=== PATIENT | male | born 1965 | race Caucasian/White ===

== ENCOUNTER → 2019-05-04 | Outpatient (CLI) | payer SELFPAY ==
--- NOTE | 2019-05-04 10:07 | Diagnostic Imaging Report ---
INDICATION: Chronic right knee pain. Time of exam: 9:38 AM 3 views of the right knee were obtained. Alignment is normal. Joint spaces are well maintained. Articular surfaces are smooth. No fracture, dislocation or effusion is seen. IMPRESSION: No acute bony abnormality is detected. Dictated by: Dictated on workstation # [id number]
--- NOTE | 2019-05-04 10:08 | Diagnostic Imaging Report ---
INDICATION: Chronic right foot pain. TIME OF EXAM: 9:43 AM 2 views of the right foot were obtained. FINDINGS: There are some degenerative changes at the first MTP joint. Metatarsals appear intact. Phalanges are intact. Midfoot and hindfoot are unremarkable. No fractures are seen. IMPRESSION: No acute bony abnormality is detected. Dictated by: Dictated on workstation # [id number]
== END ==
LOC: RAD FS 09:22
PROVIDERS: ATTEND Family Medicine
DX: G89.29 Other chronic pain (principal); M79.671 Pain in right foot; M25.561 Pain in right knee
CPT/HCPCS: 73562; 73620

== ENCOUNTER → 2020-07-30 | Outpatient (CLI) | payer SELFPAY ==
[~2020-07-30] VITALS: Ht 193 cm; Wt 129.0 kg
[~2020-07-30] MED LIST: REGADENOSON 0.4 MG/5 ML SYR (LEXISCAN) IV ONE; meTOprolol 5 MG/5 ML (LOPRESSOR) VIAL ONE
[2020-07-30] MEDS: CATHETER FLUSH 10 ML SYR IV PRN ×2 (08:43→09:47)
[2020-07-30 09:44] VITALS: BP 118/98
--- NOTE | 2020-07-30 11:25 | Cardiology Stress Test Report ---
Stress Test Report Date of Procedure/Referring: Date of Procedure: Jul 30, 2020 PCP Quan Jackson MD Admitting Physician Luis Miguel German MD Indications: cp Baseline Heart Rate: 136 Baseline Blood Pressure: Blood Pressure Systolic: 118 Blood Pressure Diastolic: 98 Baseline Vitals Vital Signs Date Time Temp Pulse Resp B/P (MAP) Pulse Ox O2 Delivery O2 Flow Rate FiO2 07/30/20 09:44 136 14 118/98 (105) 97 Room Air Baseline EKG: Baseline EKG: Atrial fibrillation, RVR Summary After explaining the procedure to the patient, he signed a consent and then brought to the stress nuclear laboratory. Patient received 0.4 mg Lexiscan for stress test, ECG, heart rate and blood pressure were monitored continuously. Resting and stress dose of radio tracer were injected, imaging was acquired and reviewed in short axis, horizontal long axis and vertical long axis views. TID: 1.07 SSS: 3 SDS: 3 EF: 56 1. Patient tolerated Lexiscan well 2. Baseline atrial fibrillation with rapid ventricular response persisted during test required IV Lopressor at the end of the test 3. Diaphragmatic attenuation with decreased uptake involving the mid to apical inferior wall with mild reversibility 4. Normal left ventricular size, ejection fraction 56 percent, underlying atrial fibrillation affect her produce ability of the gated images QUAN JACKSON MD Jul 30, 2020 11:25
== END ==
LOC: CARD 08:16
PROVIDERS: ATTEND Internal Medicine Cardiovascular Disease
DX: I50.22 Chronic systolic (congestive) heart failure (principal); I48.91 Unspecified atrial fibrillation; R06.00 Dyspnea, unspecified; R07.89 Other chest pain
CPT/HCPCS: 78452; 93017; 93306; A9502

== ENCOUNTER → 2020-08-03 | Outpatient (CLI) | payer SELFPAY ==
[~2020-08-03] MED LIST changes: +CATHETER FLUSH 10 ML SYR IV PRN; -REGADENOSON 0.4 MG/5 ML SYR (LEXISCAN) IV ONE; -meTOprolol 5 MG/5 ML (LOPRESSOR) VIAL ONE
--- NOTE | 2020-08-03 13:02 | Diagnostic Imaging Report ---
Exam: Nuclear medicine HIDA scan. Date: August 03, 2020. Indication: 55-year-old male, right upper quadrant abdominal pain. Comparison: None. Findings: 5.48 mCi of technetium labeled Choletec was administered. Ensure was administered for calculation of gallbladder ejection fraction. There is clearance of background activity by the liver indicating hepatocyte function. There is radiotracer excretion into the bile ducts and prompt filling of the gallbladder. There is extension of radiotracer into the small bowel. There is no identified enterogastric reflux. The gallbladder ejection fraction is calculated at 16%. Impression: 1. No evidence of acute cholecystitis or complete common bile duct obstruction. 2. The gallbladder ejection fraction is measured below lower limits of normal at 16%. This can be seen in the setting of biliary dyskinesia and/or chronic cholecystitis. Dictated by: Dictated on workstation # [id number]
== END ==
LOC: CARD 10:00
PROVIDERS: ATTEND Family Medicine
DX: R10.11 Right upper quadrant pain (principal)
CPT/HCPCS: 78227; A9537

== ENCOUNTER 2022-06-05 16:26 | Emergency (ER) | payer SELFPAY ==
[~2022-06-05] VITALS: Ht 193.4 cm; Wt 133.6 kg
[2022-06-05] MEDS ORDERED: meTOprolol 5 MG/5 ML (LOPRESSOR) VIAL IV STA (16:53)
[2022-06-05 16:58] LABS: BASOPHILS % (AUTO) 0 % (0-10); EOSINOPHILS # (AUTO) 0.2 10^3/uL (0.0-0.3); EOSINOPHILS % (AUTO) 2 % (0-10); HEMATOCRIT 47 % (40-54); HEMOGLOBIN 16.3 g/dL (13.3-17.7); LYMPHOCYTES # (AUTO) 2.2 10^3/uL (1.0-4.0); LYMPHOCYTES % (AUTO) 24 % (12-44); MEAN CORPUSCULAR HEMOGLOBIN 30 pg (25-34); MEAN CORPUSCULAR HGB CONC 35 g/dL (32-36); MEAN CORPUSCULAR VOLUME 87 fL (80-99); MEAN PLATELET VOLUME 10.1 fL (9.0-12.2); MONOCYTES # (AUTO) 0.9 10^3/uL (0.0-1.0); MONOCYTES % (AUTO) 10 % (0-12); NEUTROPHILS # (AUTO) 5.6 10^3/uL (1.8-7.8); NEUTROPHILS % (AUTO) 63 % (42-75); PLATELET COUNT 212 10^3/uL (130-400)
--- NOTE | 2022-06-05 17:03 | ED General ---
General Chief Complaint: Dizziness/Syncope Stated Complaint: LIGHTHEADED Nursing Triage Note: dizzy and light headed started around 1500 today and has not resolved. states has had before but today would not go away. denies fever, positive for small occasional non productive cough. denies recent illness. Source of Information: Patient History of Present Illness Date Seen by Provider: Jun 05, 2022 Time Seen by Provider: 16:31 Initial Comments 57-year-old male presenting with complaints of feeling dizzy and lightheaded. He states this started around 3 PM today while he was at court and was getting frustrated and agitated. He denied any chest pain with this. He has not had any fever or chills. He has had small occasional nonproductive cough. He was feeling better by the time he arrived here in the emergency department. He was unsure if he was having anxiety or panic attack or if this was related to the stress of being frustrated while he was at court. He denied having a headache or any blurred vision. He had some mild nausea but no vomiting. Timing/Duration: 1-3 Hours Severity: Moderate Modifying Factors: worse with Movement (Been up walking as well as stress had triggered his symptoms) Associated Systoms: No Chest Pain, No Diaphoresis, No Fever/Chills, No Headaches, No Loss of Appetite, No Malaise, No Rash, No Seizure, No Shortness of Air, No Syncope, No Weakness Allergies and Home Medications Allergies Coded Allergies: No Allergy Information Available (Unverified , 07/30/20) Patient Home Medication List Home Medication List Reviewed: Yes Review of Systems Review of Systems Constitutional: No chills; dizziness; No fever EENTM: No ear discharge, No ear pain, No blurred vision, No nose congestion, No throat pain Respiratory: cough (Occasional intermittent nonproductive cough); No short of breath Cardiovascular: No chest pain Gastrointestinal: nausea; No vomiting Genitourinary: no symptoms reported Musculoskeletal: no symptoms reported Skin: No rash Psychiatric/Neurological: Emotional Problems (Stressed and anxious while he was at court today when his symptoms started); Denies Headache, Denies Numbness, Denies Paresthesia Past [id number] Hx Patient Social History Tobacco Use?: No Use of E-Cig and/or Vaping dev: Yes E-Cig or Vaping type used: Nicotine Substance type: Marijuana Substance frequency: Daily Alcohol Use?: Yes Alcohol Frequency: Once in a while Immunizations Up To Date First/Initial COVID19 Vaccinat: declined Past Medical History Surgery/Hospitalization HX: DIABETES, HEART DISEASE Physical Exam Vital Signs Vital Signs - First Documented 06/05/22 16:35 Temp 36.3 Pulse 123 Resp 20 B/P (MAP) 138/95 (109) Pulse Ox 95 O2 Delivery Room Air Capillary Refill : Less Than 3 Seconds Height, Weight, BMI Height: '" Weight: lbs. oz. kg; 35.00 BMI Method: General Appearance: No Apparent Distress, WD/WN, Obese HEENT: PERRL/EOMI, Pharynx Normal Neck: Full Range of Motion, Normal Inspection, Non Tender, Supple Respiratory: Chest Non Tender, Lungs Clear, Normal Breath Sounds, No Accessory Muscle Use, No Respiratory Distress Cardiovascular: Normal Peripheral Pulses, Tachycardia Gastrointestinal: Normal Bowel Sounds, No Pulsatile Mass, Non Tender, Soft Rectal: Deferred Extremity: Normal Capillary Refill, Normal Inspection, Pedal Edema (Trace to 1+ pitting pedal edema bilaterally) Neurologic/Psychiatric: Alert, Oriented x3, hand coke drawer II-XII Norm as Tested Skin: Normal Color, Warm/Dry Progress/Results/Core Measures Suspected Sepsis SIRS Temperature: Pulse: 123 Respiratory Rate: 20 Laboratory Tests 06/05/22 16:40: White Blood Count 9.0 Blood Pressure 138 /95 Mean: 109 Laboratory Tests 06/05/22 16:40: Creatinine 1.07, INR Comment 1.1, Platelet Count 212, Total Bilirubin 0.6 Results/Orders Lab Results Laboratory Tests Test 06/05/22 16:40 Range/Units White Blood Count 9.0 4.3-11.0 10^3/uL Red Blood Count 5.39 4.30-5.52 10^6/uL Hemoglobin 16.3 13.3-17.7 g/dL Hematocrit 47 40-54 % Mean Corpuscular Volume 87 80-99 fL Mean Corpuscular Hemoglobin 30 25-34 pg Mean Corpuscular Hemoglobin Concent 35 32-36 g/dL Red Cell Distribution Width 12.7 10.0-14.5 % Platelet Count 212 130-400 10^3/uL Mean Platelet Volume 10.1 9.0-12.2 fL Immature Granulocyte % (Auto) 1 % Neutrophils (%) (Auto) 63 42-75 % Lymphocytes (%) (Auto) 24 12-44 % Monocytes (%) (Auto) 10 0-12 % Eosinophils (%) (Auto) 2 0-10 % Basophils (%) (Auto) 0 0-10 % Neutrophils # (Auto) 5.6 1.8-7.8 10^3/uL Lymphocytes # (Auto) 2.2 1.0-4.0 10^3/uL Monocytes # (Auto) 0.9 0.0-1.0 10^3/uL Eosinophils # (Auto) 0.2 0.0-0.3 10^3/uL Basophils # (Auto) 0.0 0.0-0.1 10^3/uL Immature Granulocyte # (Auto) 0.1 0.0-0.1 10^3/uL Prothrombin Time 14.5 12.2-14.7 SEC INR Comment 1.1 0.8-1.4 Activated Partial Thromboplast Time 37 H 24-35 SEC Sodium Level 138 135-145 MMOL/L Potassium Level 4.1 3.6-5.0 MMOL/L Chloride Level 102 98-107 MMOL/L Carbon Dioxide Level 21 21-32 MMOL/L Anion Gap 15 H 5-14 MMOL/L Blood Urea Nitrogen 17 7-18 MG/DL Creatinine 1.07 0.60-1.30 MG/DL Estimat Glomerular Filtration Rate 82 BUN/Creatinine Ratio 16 Glucose Level 150 H 70-105 MG/DL Calcium Level 8.9 8.5-10.1 MG/DL Corrected Calcium 8.5-10.1 MG/DL Magnesium Level 2.0 1.6-2.4 MG/DL Total Bilirubin 0.6 0.1-1.0 MG/DL Aspartate Amino Transf (AST/SGOT) 76 H 5-34 U/L Alanine Aminotransferase (ALT/SGPT) 98 H 0-55 U/L Alkaline Phosphatase 49 40-136 U/L Troponin I < 0.30 <0.30 NG/ML Pro-B-Type Natriuretic Peptide 139.6 H <125.0 PG/ML Total Protein 7.5 6.4-8.2 GM/DL Albumin 4.6 H 3.2-4.5 GM/DL Lipase 38 8-78 U/L My Orders Orders - CAMERON BAINS MD Cbc With Automated Diff (06/05/22 16:53) Magnesium (06/05/22 16:53) Chest 1 View Ap/Pa Only (06/05/22 16:53) Ekg Tracing (06/05/22 16:53) Comprehensive Metabolic Panel (06/05/22 16:53) Protime With Inr (06/05/22 16:53) Partial Thromboplastin Time (06/05/22 16:53) O2 (06/05/22 16:53) Monitor-Rhythm Ecg Trace Only (06/05/22 16:53) Ed Iv/Invasive Line Start (06/05/22 16:53) Lipase (06/05/22 16:53) Troponin I Fs (06/05/22 16:53) Probnp Fs (06/05/22 16:53) Metoprolol Tartrate Injection (Lopressor (06/05/22 16:53) Vital Signs/I&O 06/05/22 06/05/22 16:35 18:37 Temp 36.3 36.3 Pulse 123 122 Resp 20 20 B/P (MAP) 138/95 (109) 146/103 Pulse Ox 95 95 O2 Delivery Room Air Room Air Capillary Refill : Less Than 3 Seconds Blood Pressure Mean: 109 Progress Note #1: Progress Note Obtain basic labs as well as electrocardiogram and chest x-ray. Since he is having tachycardia and has a history of atrial fibrillation we will give a single dose of metoprolol. He is inconsistent with taking his carvedilol at home. Progress Note #2: Progress Note Electrocardiogram shows atrial tachycardia but no ST elevation. There is no acute process on his chest x-ray. His heart rate stayed 120s despite metoprolol but his blood pressure did improve down into the 120s over 70s to 80s. He reports that the dizziness and lightheaded sensation had resolved so even with getting up and walking. Discussed with the patient that we could do additional medicine to help slow his heart rate more such as diltiazem in case this was him being on the cusp of going back into paroxysmal atrial fibrillation. He could also try drinking more fluids if he is a little dry. Patient walked in the emergency department and stated he was not having any further symptoms so he did not want to do any other medication here. Encouraged him to drink plenty of fluids at home and be very consistent with taking his carvedilol and blood pressure medications. Return if he is having worsening symptoms or new problems ECG Initial ECG Impression Date: Jun 05, 2022 Initial ECG Impression Time: 16:37 Initial ECG Rate: 123 Initial ECG Rhythm: S.Tach Initial ECG Comparisson: No Previous ECG Available Comment Atrial tachycardia with a heart rate of 123 bpm. Right bundle branch block. OK interval 198 ms. QT interval 300 ms with a QTc interval 373 ms. There is no prior tracing for comparison. Diagnostic Imaging Diagonstic Imaging: Xray Plain Films/CT/US/NM/MRI: chest Comments [facility], [place] NAME: [facility] REC#: [id number] PT STATUS: REG ER : 1965 PHYSICIAN: CAMERON BAINS MD ADMIT DATE: 06/05/22/ER FS Draft Date of Exam:06/05/22 CHEST 1 VIEW AP/PA ONLY INDICATION: Dizzy, tachycardia. TECHNIQUE: Single view chest 4:59 PM. CORRELATION STUDY: None FINDINGS: Heart size is borderline enlarged prevascular overall within normal limits. Tortuous course thoracic aorta. Lung jasso are hyperinflated but overall clear. IMPRESSION: 1. Negative appearing single view chest. Dictated on workstation # [id number] Dict: 06/05/22 1704 Trans: 06/05/22 1705 DO [id number] Interpreted by: RAMESH HUBBARD DO Electronically signed by: Reviewed: Reviewed by Me Departure Impression Primary Impression: Tachycardia Additional Impression: Dizziness Disposition: 01 HOME, SELF-CARE Condition: Stable Departure-Patient Inst. Decision time for Depature: 18:31 Referrals: EB RUEDA MD (PCP/Family) Primary Care Physician Patient Instructions: Dizziness, Adult ED, Tachycardia (DC) Add. Discharge Instructions: Your heart test and chest x-ray as well as blood work looked okay today. You do have a slightly fast heart rate which should respond to continued use of your regular medications such as the carvedilol. Try and stay well-hydrated and drink plenty of fluids self or electrolyte drinks. If you are slightly dry that could also contribute to the dizziness and fast heart rate. If you have worsening symptoms or new symptoms develop within return or be reevaluated. All discharge instructions reviewed with patient and/or family. Voiced understanding. CAMERON BAINS MD Jun 05, 2022 17:03
[2022-06-05 17:08] LABS: INR 1.1 (0.8-1.4); PROTHROMBIN TIME PATIENT 14.5 SEC (12.2-14.7)
[2022-06-05 17:23] LABS: ALANINE AMINOTRANSFERASE 98 U/L (0-55); ALBUMIN 4.6 GM/DL (3.2-4.5); ALKALINE PHOSPHATASE 49 U/L (40-136); BILIRUBIN,TOTAL 0.6 MG/DL (0.1-1.0); BUN/CREATININE RATIO 16; CALCIUM 8.9 MG/DL (8.5-10.1); CARBON DIOXIDE 21 MMOL/L (21-32); CHLORIDE 102 MMOL/L (98-107); CREATININE SERUM 1.07 MG/DL (0.60-1.30); GFR ESTIMATED 82; GLUCOSE 150 MG/DL (70-105); LIPASE 38 U/L (8-78); POTASSIUM 4.1 MMOL/L (3.6-5.0); SODIUM 138 MMOL/L (135-145); TOTAL PROTEIN 7.5 GM/DL (6.4-8.2)
[2022-06-05 18:37] VITALS: BP 146/103
== END 2022-06-05 18:37 | disposition home or self-care (01) ==
LOC: EDUNIT# 16:26 → ER FS 16:28
DX: R00.0 Tachycardia, unspecified (principal); R42 Dizziness and giddiness; E66.9 Obesity, unspecified; F17.290 Nicotine dependence, other tobacco product, uncomplicated; Z68.35 Body mass index [BMI] 35.0-35.9, adult; Z28.310 Unvaccinated for COVID-19
CPT/HCPCS: 36415; 71045; 80053; 83690; 83735; 83880; 84484; 85025; 85610; 85730; 93005; 93041

== ENCOUNTER 2023-07-24 10:15 | Emergency (ER) | payer SELFPAY ==
[~2023-07-24] VITALS: Ht 193 cm; Wt 131.8 kg
[2023-07-24 10:15] VITALS: BP 118/76
[2023-07-24] MEDS ORDERED: dexAMETHasone INJ 10 MG/ML 1 ML VIAL IV STA (10:24)
[2023-07-24] MEDS ORDERED: KETOROLAC INJ 30 MG/ML VIAL IVP STA (10:24)
[2023-07-24] MEDS ORDERED: NS IV 1000 ML 1,000 ML IV STA (10:24)
[2023-07-24 10:39] LABS: BASOPHILS % (AUTO) 0 % (0-10); EOSINOPHILS % (AUTO) 1 % (0-10); HEMATOCRIT 46 % (40-54); HEMOGLOBIN 15.4 g/dL (13.3-17.7); LYMPHOCYTES # (AUTO) 0.9 10^3/uL (1.0-4.0); LYMPHOCYTES % (AUTO) 11 % (12-44); MEAN CORPUSCULAR HEMOGLOBIN 30 pg (25-34); MEAN CORPUSCULAR HGB CONC 33 g/dL (32-36); MEAN CORPUSCULAR VOLUME 90 fL (80-99); MEAN PLATELET VOLUME 10.9 fL (9.0-12.2); MONOCYTES # (AUTO) 1.3 10^3/uL (0.0-1.0); MONOCYTES % (AUTO) 16 % (0-12); NEUTROPHILS # (AUTO) 5.8 10^3/uL (1.8-7.8); NEUTROPHILS % (AUTO) 71 % (42-75); PLATELET COUNT 150 10^3/uL (130-400); WHITE BLOOD COUNT 8.2 10^3/uL (4.3-11.0)
--- NOTE | 2023-07-24 10:40 | ED General ---
General Stated Complaint: POSS ALLERGIC REACTION Source of Information: Patient, EMS History of Present Illness Date Seen by Provider: Jul 24, 2023 Time Seen by Provider: 10:15 Initial Comments 58-year-old male presenting with complaints of throat swelling and facial pain and swelling. He states this has been worsening over the last 3 to 4 days. He felt like his throat was getting worse today. He was concerned that he was having an allergic reaction from using hydrocortisone cream on his scalp for eczema. He states he had but the hydrocortisone cream over a large area of his scalp because he could not see where he had eczema. He states that he has felt very fatigued and rundown over the last several days and has mainly been in bed. He felt like he was having fever and chills and was getting sweats. He is able to swallow but feels like his throat is swelling. He has not had any difficulty breathing. He became anxious and nervous that he was having bad allergic reaction and had EMS transported him here to the emergency department. On arrival to the ED he was immediately very short and demanding with the staff. He was refusing to speak and answer questions until he received some water. EMS reports that he was acting similarly with them. Severity: Severe Modifying Factors: worse with Medication (He felt like the hydrocortisone cream was causing problems for him) Associated Systoms: No Chest Pain, No Cough; Diaphoresis, Fever/Chills, Headaches, Loss of Appetite, Malaise; No Nausea/Vomiting, No Seizure, No Shortness of Air, No Syncope Allergies and Home Medications Allergies Coded Allergies: No Allergy Information Available (Unverified , 07/30/20) Patient Home Medication List Home Medication List Reviewed: Yes Amoxicillin/Potassium Clav (Amox Tr-K Clv 875-125 mg Tab) 875 Mg-125 Mg Tablet, 1 EACH PO BID Prescribed by: CAMERON BAINS on 07/24/23 1157 Hydrocodone/Acetaminophen (Hydrocodone-Acetamin 5-325 mg) 5 Mg-325 Mg Tablet, 1 TAB PO Q6H PRN for PAIN SEVERE Prescribed by: CAMERON BAINS on 07/24/23 1158 Review of Systems Review of Systems Constitutional: see HPI EENTM: throat pain, throat swelling, other (He feels like he is having swelling in pain to his face especially on the right side.) Respiratory: No cough, No short of breath, No stridor, No wheezing Cardiovascular: no symptoms reported Gastrointestinal: loss of appetite; No nausea, No vomiting Genitourinary: No dysuria Musculoskeletal: other (Generalized body aches) Skin: see HPI Psychiatric/Neurological: Headache Past [id number] Hx Immunizations Up To Date First/Initial COVID19 Vaccinat: declined Past Medical History Surgery/Hospitalization HX: DIABETES, HEART DISEASE, eczema Physical Exam Vital Signs Vital Signs - First Documented 07/24/23 10:15 Temp 37.0 Pulse 107 Resp 18 B/P (MAP) 118/76 (90) Pulse Ox 98 O2 Delivery Room Air Capillary Refill : Height, Weight, BMI Height: '" Weight: lbs. oz. kg; 35.00 BMI Method: General Appearance: Obese, Other (disheveled appearance) HEENT: PERRL/EOMI, Moist Mucous Membranes; No Photophobia; Tonsillar Exudate, Tonsillar Enlargement, Other (no stridor, erythema to right side of face and ear pinna swelling) Neck: Full Range of Motion, Supple Respiratory: Chest Non Tender, Lungs Clear, Normal Breath Sounds Cardiovascular: Normal Peripheral Pulses, Tachycardia Gastrointestinal: Normal Bowel Sounds, No Pulsatile Mass, Non Tender, Soft Rectal: Deferred Extremity: Normal Capillary Refill, Normal Inspection, No Pedal Edema Neurologic/Psychiatric: Alert, Oriented x3 Skin: Warm/Dry, Erythema (right side of face and right pinna) Focused Exam Lactate Level 07/24/23 10:38: Lactic Acid Level 2.54*H Lactic Acid Level Laboratory Tests Test 07/24/23 10:38 Lactic Acid Level 2.54 MMOL/L (0.50-2.00) *H Progress/Results/Core Measures Suspected Sepsis SIRS Temperature: Pulse: Respiratory Rate: Laboratory Tests 07/24/23 10:38: White Blood Count 8.2 Blood Pressure / Mean: 07/24/23 10:38: Lactic Acid Level 2.54*H Laboratory Tests 07/24/23 10:38: Creatinine 0.84, Platelet Count 150, Total Bilirubin 0.6 Results/Orders Lab Results Laboratory Tests Test 07/24/23 10:18 07/24/23 10:38 Range/Units Group A Streptococcus Screen Not Detected NotDetected White Blood Count 8.2 4.3-11.0 10^3/uL Red Blood Count 5.12 4.30-5.52 10^6/uL Hemoglobin 15.4 13.3-17.7 g/dL Hematocrit 46 40-54 % Mean Corpuscular Volume 90 80-99 fL Mean Corpuscular Hemoglobin 30 25-34 pg Mean Corpuscular Hemoglobin Concent 33 32-36 g/dL Red Cell Distribution Width 12.6 10.0-14.5 % Platelet Count 150 130-400 10^3/uL Mean Platelet Volume 10.9 9.0-12.2 fL Immature Granulocyte % (Auto) 0 % Neutrophils (%) (Auto) 71 42-75 % Lymphocytes (%) (Auto) 11 L 12-44 % Monocytes (%) (Auto) 16 H 0-12 % Eosinophils (%) (Auto) 1 0-10 % Basophils (%) (Auto) 0 0-10 % Neutrophils # (Auto) 5.8 1.8-7.8 10^3/uL Lymphocytes # (Auto) 0.9 L 1.0-4.0 10^3/uL Monocytes # (Auto) 1.3 H 0.0-1.0 10^3/uL Eosinophils # (Auto) 0.0 0.0-0.3 10^3/uL Basophils # (Auto) 0.0 0.0-0.1 10^3/uL Immature Granulocyte # (Auto) 0.0 0.0-0.1 10^3/uL Sodium Level 130 L 135-145 MMOL/L Potassium Level 4.3 3.6-5.0 MMOL/L Chloride Level 97 L 98-107 MMOL/L Carbon Dioxide Level 17 L 21-32 MMOL/L Anion Gap 16 H 5-14 MMOL/L Blood Urea Nitrogen 20 H 7-18 MG/DL Creatinine 0.84 0.60-1.30 MG/DL Estimat Glomerular Filtration Rate 102 BUN/Creatinine Ratio 24 Glucose Level 149 H 70-105 MG/DL Lactic Acid Level 2.54 *H 0.50-2.00 MMOL/L Calcium Level 8.7 8.5-10.1 MG/DL Corrected Calcium 9.3 8.5-10.1 MG/DL Total Bilirubin 0.6 0.1-1.0 MG/DL Aspartate Amino Transf (AST/SGOT) 31 5-34 U/L Alanine Aminotransferase (ALT/SGPT) 31 0-55 U/L Alkaline Phosphatase 50 40-136 U/L C-Reactive Protein 18.51 H <0.50 MG/DL Total Protein 6.9 6.4-8.2 GM/DL Albumin 3.3 3.2-4.5 GM/DL My Orders Orders - CAMERON BAINS MD Cbc And Automated Diff (07/24/23 10:22) Comprehensive Metabolic Panel (07/24/23 10:22) Blood Culture (07/24/23 10:22) Rapid Strep A Screen (07/24/23 10:22) Ed Iv/Invasive Line Start (07/24/23 10:22) Crp Fs (07/24/23 10:22) Lactic Acid Analyzer (07/24/23 10:22) Ns Iv 1000 Ml (Ns Iv 1000 Ml) (07/24/23 10:24) Ketorolac Injection (Ketorolac Injection (07/24/23 10:24) Dexamethasone Injection (Dexamethasone (07/24/23 10:24) Ceftriaxone Iv/Im (Ceftriaxone Iv/Im) (07/24/23 11:55) Vital Signs/I&O 07/24/23 10:15 Temp 37.0 Pulse 107 Resp 18 B/P (MAP) 118/76 (90) Pulse Ox 98 O2 Delivery Room Air Capillary Refill : Progress Note #1: Progress Note Differential diagnosis of strep pharyngitis, viral pharyngitis, viral syndrome, facial cellulitis, sepsis. Obtain swab of the throat for rapid strep. Establish peripheral IV access and send labs for complete blood count, comprehensive metabolic profile, blood cultures, lactic acid, CRP. Administer normal saline 1 L IV fluid bolus for hydration, Toradol 30 mg IV for pain, dexamethasone 10 mg IV for throat swelling and pain. At this point I am not appreciating any signs or symptoms that appeared consistent with an allergic reaction is much as tonsillitis and pharyngitis and possible cellulitis of the right side of the face. Progress Note #2: Time: 10:45 Progress Note Patient was not pleased with the care he was getting from nursing staff. He requested that I do not explain why I was ordering the medications I had. He was concerned especially about getting the dexamethasone or Decadron steroid when he was thinking that he might be having an allergic reaction to a different steroid. He states he understands the difference between topical and intranasal steroids but was still concerned about it. He felt that the nurses were not listening to him. I reviewed with him my plan with the Toradol to try and help with his headache and body aches as well as the steroid to try and help with the throat pain and swelling. I did not see anything that may be think that she was having an allergic reaction to the topical steroid. I felt like he more likely had strep or some sort of pharyngitis as well as he could have some cellulitis to the right side of his head and face since he had been using the topical steroid and had eczema with open sores on his scalp. He requested that I administer his medications. I did not get the medication from his nurse and did a slow IV push of the Toradol 30 mg IV as well as dexamethasone 10 mg IV. He was continuing to get IV fluids as an infusion as well. Within minutes of receiving the Toradol he stated that his headache and symptoms were starting to improve. Progress Note #3: Time: 12:00 Progress Note I reviewed with the patient that his labs looked okay with a white blood cell count of 8 which was right in the middle range. His comprehensive metabolic profile did not show any acute significant electrolyte abnormality but he did have slight elevation of his sugar. His lactic acid was just slightly elevated which is more likely related to dehydration since he has not been eating and drinking well in the last several days. He is not exhibiting other signs of sepsis. His heart rate has improved to 94 bpm while he was administering medications. He asked about getting a shot of antibiotics to help with the infection. He states that he recently had cephalexin for a finger infection approximately 6 weeks ago. I told him that we would use a boosted amoxicillin to treat for possible strep and cellulitis. From an IV standpoint I could give him a dose of Rocephin 1 g IV. He also did not have a specific ride to get home. Will reach out to [facility] to see if they have transport as he states he has used their transport service before. If they did not have anybody will try checking with the taxi service. If that still does not work then he could try to reach out to his employer to see if they might be able to give him a ride. [facility] stated that they did not have a transport service today. When contacting the taxi service they stated that if the patient was ready to go at 1220 they would be able to come pick him up otherwise they were booked the rest the day and he would have to find another way. I did a slow push of the Rocephin 1 g IV and patient tolerated this well without any immediate complications. I removed his IV after flushing it. The IV was removed intact without any difficulty. Since he does take Xarelto as a blood thinner he held pressure and applied a pressure dressing. Advised him to do remove the dressing in 15 to 20 minutes. Continue to hold pressure to try and help limit bruising and swelling. He had requested a few hydrocodone so that he had something stronger for pain because he was having severe throat and head pain prior to calling 911. I sent prescriptions for Augmentin 875 1 p.o. twice daily x7 days as well as hydrocodone 5/325 1 p.o. every 6 hours as needed severe pain #8 for 2 days. Encourage fluids and rest. Have use [id number] ibuprofen up to 800 mg every 8 hours as needed for pain and inflammation. Check back with the clinic and he states that he has an appointment in 5 days. Departure Impression Primary Impression: Pharyngitis Qualified Codes: J02.9 - Acute pharyngitis, unspecified Additional Impression: Right facial swelling Disposition: HOME, SELF-CARE Condition: Improved Departure-Patient Inst. Decision time for Depature: 11:59 Referrals: EB RUEDA MD (PCP/Family) Primary Care Physician Patient Instructions: Sore Throat, Adult ED Add. Discharge Instructions: Stay well hydrated and drink plenty of fluids. Take the full course of antibiotics for your throat. This will also help if th ere is a skin infection causing pain and swelling to your scalp and face. Check back with clinic for continued concerns. May take Ibuprofen up to 800 mg or 4 of the 200 mg over the counter pills every 8 hours as needed for pain and inflammation. Scripts Hydrocodone/Acetaminophen (Hydrocodone-Acetamin 5-325 mg) 5 Mg-325 Mg Tablet 1 TAB PO Q6H PRN for PAIN SEVERE for 2 Days, #8 TAB 0 Refills Prov: CAMERON BAINS MD 07/24/23 Amoxicillin/Potassium Clav (Amox Tr-K Clv 875-125 mg Tab) 875 Mg-125 Mg Tablet 1 EACH PO BID for pharyngitis for 7 Days, #14 TAB 0 Refills Prov: CAMERON BAINS MD 07/24/23 CAMERON BAINS MD Jul 24, 2023 10:40
[2023-07-24 10:52] LABS: BILIRUBIN,TOTAL 0.6 MG/DL (0.1-1.0); CALCIUM 8.7 MG/DL (8.5-10.1); POTASSIUM 4.3 MMOL/L (3.6-5.0)
[2023-07-24 10:58] LABS: ALBUMIN 3.3 GM/DL (3.2-4.5); CREATININE SERUM 0.84 MG/DL (0.60-1.30); TOTAL PROTEIN 6.9 GM/DL (6.4-8.2)
[2023-07-24] MEDS ORDERED: cefTRIAXone IV/IM 1,000 MG in NS (IVPB) 50 ML 50 ML IV STA (11:55)
[2023-07-24] MEDS ORDERED: AMOX1TAB12 PO (11:57)
[2023-07-24] MEDS ORDERED: ACHD5005 PO (11:57)
== END 2023-07-24 12:18 | disposition home or self-care (01) ==
LOC: EDUNIT# 10:15 → ER FS 10:17
DX: J02.9 Acute pharyngitis, unspecified (principal); R22.0 Localized swelling, mass and lump, head; Z79.01 Long term (current) use of anticoagulants
CPT/HCPCS: 36415; 80053; 83605; 85025; 86141; 87040; 87430; 96361; 96374; 96375